=== PATIENT | male | born 1985 ===

== ENCOUNTER 2017-08-08 15:11 | Emergency (ER) | payer OTHER ==
[2017-08-08 15:22] VITALS: O2SAT 98
[2017-08-08 15:23] VITALS: BMI 65.5
--- NOTE | 2017-08-08 15:49 | ED PDOC ---
Arrival/HPI - General Chief Complaint: Lower Extremity Problem/Injury Time Seen by Provider: 08/08/17 15:43 Historian: Patient - History of Present Illness Narrative History of Present Illness (Text): 08/08/17 15:45 32-year-old male presents today with left ankle and left foot and left knee pain status post fall. Patient states 3 days ago he was walking and his ankle twisted and gave out on him. Patient states he fell to the ground. Patient states he has injured his ankle in the past and thought that the pain would improve on its own. Patient states than yesterday he slipped in the shower because he was favoring the left ankle and fell reinjuring the left ankle. Patient denies headache dizziness or weakness. No chest pain or shortness of breath. He denies any back pain. Patient states his pain to the ankle and foot and along the lateral aspect of the left knee. Patient states he is able to ambulate but can only for minimal pressure on the left foot and ankle. Patient states she has not taken any medications for pain at home and is refusing any medications for pain at this time. Patient denies numbness weakness or tingling in the extremity. No other complaints. Past Medical History - Provider Review Nursing Documentation Reviewed: Yes - Travel History Have you recently traveled outside [place] w/in the past 3 mons?: No - Infectious Disease Hx of Infectious Diseases: None - Tetanus Immunization Tetanus Immunization: Unknown - Past Medical History Past Medical History: No Previous - Psychiatric Hx Depression: No Hx Emotional Abuse: No Hx Physical Abuse: No Hx Substance Use: No - Past Surgical History Past Surgical History: No Previous - Suicidal Assessment Feels Threatened In Home Enviroment: No Family/Social History - Physician Review Nursing Documentation Reviewed: Yes Family/Social History: Unknown Family HX Smoking Status: Never Smoked Hx Alcohol Use: No Hx Substance Use: No Hx Substance Use Treatment: No Allergies/Home Meds Allergies/Adverse Reactions: Allergies Penicillins Allergy (Verified 08/08/17 15:17) REDNESS Review of Systems - Review of Systems Constitutional: absent: Fatigue, Fevers Respiratory: absent: SOB, Cough Cardiovascular: absent: Chest Pain, Palpitations Gastrointestinal: absent: Abdominal Pain, Nausea, Vomiting Musculoskeletal: Arthralgias (left ankle, left foot, left knee pain). absent: Back Pain, Neck Pain Skin: absent: Rash, Pruritis Neurological: absent: Headache, Dizziness Psychiatric: absent: Anxiety, Depression Physical Exam Vital Signs Reviewed: Yes Vital Signs Temp Pulse Resp BP Pulse Ox 08/08/17 15:21 98.2 F 90 19 165/88 H 98 Temperature: Afebrile Blood Pressure: Hypertensive Pulse: Regular Respiratory Rate: Normal Appearance: Positive for: Well-Appearing, Non-Toxic, Comfortable Pain Distress: None Mental Status: Positive for: Alert and Oriented X 3 - Systems Exam Head: Present: Atraumatic Neck: Present: Normal Range of Motion Respiratory/Chest: Present: Clear to Auscultation Cardiovascular: Present: Regular Rate and Rhythm Abdomen: No: Tenderness, Rebound, Guarding Back: Present: Normal Inspection. No: Midline Tenderness, Paraspinal Tenderness Upper Extremity: Present: Normal Inspection, Normal ROM Lower Extremity: Present: NORMAL PULSES, Normal ROM, Tenderness (left ankle; + ttp over medial aspect of ankle; no achilles tendon tenderness; no calf tenderness. minimal edema, no erythema; no ecchymosis; + ttp over dorsal aspect of foot; sensation and distal pulses intact; cap refill <2. Left knee; + ttp over anterior aspect of knee; full rom of knee. no edema, no erythema; no eccymosis. ), Swelling, Neurovascularly Intact, Capillary Refill < 2 s. No: CALF TENDERNESS, Erythema, Deformity, Temperature Abnormalties Neurological: Present: GCS=15, Speech Normal Skin: Present: Warm, Dry, Normal Color. No: Rashes Psychiatric: Present: Alert, Oriented x 3 Medical Decision Making ED Course and Treatment: 08/08/17 15:54 Patient nontoxic well-appearing in no distress with stable vital signs pt initially refusing medications for pain X-rays of the left ankle: + fracture distal tibia xray of the left foot; + avulsion fracture distal tibia xrays of the left knee: no fracture Patient placed in short leg posterior splint, crutches unable to use; due to weight limit. rx for walker given. I discussed all results in depth with the patient advised to followup with the orthopedist within the next 2 days. Advised return if symptoms worsen persist or new symptoms develop Patient verbalizes understanding of discharge instructions and need for immediate followup. all aspects of this case were discussed the attending of record. Impression: Ankle fracture Motrin every 6 hours as needed for pain Rest, ice, compression, elevation Use walker for ambulation Followup with the orthopedist within the next 2 days Followup with primary care physician within the next 2 days Return if symptoms worsen persist or if new symptoms develop - RAD Interpretation Radiology Orders: 08/08/17 15:44 ANKLE LEFT 3 VIEWS ROUTINE [RAD] Stat FOOT LEFT 3 VIEWS ROUTINE [RAD] Stat KNEE WITH PATELLA LEFT 3 VIEW [RAD] Stat - Medication Orders Current Medication Orders: Discontinued Medications Ketorolac Tromethamine (Toradol) 60 mg IM STAT STA Stop: 08/08/17 15:45 Last Admin: 08/08/17 16:48 Dose: 60 mg MAR Pain Assessment Document 08/08/17 16:48 [facility] (Rec: 08/08/17 16:49 [facility] [id number]) Pain Reassessment Is this a pain reassessment? No IM Administration Charges Document 08/08/17 16:48 [employer] (Rec: 08/08/17 16:49 [facility] [id number]) Injection Site MAR Injection Site Right Deltoid Charges for Administration # of IM Administrations 1 Procedures - Splinting Location: left ankle Hand-Made Type: fiberglass Splint: posterior short leg splint Pre-Proc Neuro Vasc Exam: normal Post-Proc Neuro Vasc Exam: normal Disposition/Present on Arrival - Present on Arrival Any Indicators Present on Arrival: No History of DVT/PE: No History of Uncontrolled Diabetes: No Urinary Catheter: No History of Decub. Ulcer: No History Surgical Site Infection Following: None - Disposition Have Diagnosis and Disposition been Completed?: Yes Diagnosis: Ankle fracture Disposition: HOME/ ROUTINE Disposition Time: 18:24 Patient Plan: Discharge Patient Problems: Current Active Problems Problem Status Onset Ankle fracture Acute Condition: GOOD Discharge Instructions (ExitCare): Ankle Fracture (DC) Additional Instructions: Motrin every 6 hours as needed for pain Rest, ice, compression, elevation Use walker for ambulation Followup with the orthopedist within the next 2 days Followup with primary care physician within the next 2 days Return if symptoms worsen persist or if new symptoms develop Prescriptions: Ibuprofen [Motrin] 600 mg PO Q6H PRN #20 tab PRN Reason: pain/fever reduction Referrals: [facility] [Outside] - Follow up with primary [facility] [Outside] - Follow up with primary Giuseppe Atwood MD [Staff Provider] - Follow up with primary Peg Sims MD [Staff Provider] - Follow up with primary [facility] [Outside] - Follow up with primary Forms: [employer] (Bulgarian), WORK NOTE
[2017-08-08 19:21] VITALS: BP 123/68; PULSE 78; RESP 18; TEMP 98
--- NOTE | 2017-08-09 11:12 | RAD ---
PROCEDURE: Left Foot Radiographs. HISTORY: foot pain COMPARISON: None. FINDINGS: BONES: Normal. No fracture. JOINTS: Normal. SOFT TISSUES: Normal. OTHER FINDINGS: None. IMPRESSION: Normal left foot radiographs.
--- NOTE | 2017-08-09 11:13 | RAD ---
PROCEDURE: Left Knee Radiographs. HISTORY: Pain. COMPARISON: None. FINDINGS: BONES: Normal. No fracture. JOINTS: Normal. No osteoarthritis. JOINT EFFUSION: None. OTHER FINDINGS: None. IMPRESSION: Normal radiographs of the left knee.
--- NOTE | 2017-08-09 11:13 | RAD ---
PROCEDURE: Left Ankle Radiographs. HISTORY: ankle pain COMPARISON: None FINDINGS: BONES: Normal. No fracture. JOINTS: Normal. No osteoarthritis. Ankle mortise maintained. Talar dome intact SOFT TISSUES: Normal. OTHER FINDINGS: None. IMPRESSION: Normal left ankle radiographs.
== END 2017-08-08 19:15 | disposition home or self-care (01) ==
LOC: ED 15:11
DX: S82.892A Other fracture of left lower leg, initial encounter for closed fracture (principal); W18.2XXA Fall in (into) shower or empty bathtub, initial encounter
CPT/HCPCS: 73562; 73610; 73630; 96372; 99283; J1885